=== PATIENT | female | born 1945 | race Caucasian/White ===

== ENCOUNTER 2018-07-04 07:54 | Outpatient (CLI) | payer MEDICARE, OTHER | END 2018-07-04 07:55 | disposition home or self-care (01) | LOC: BICMAMMO 07:54 | PROVIDERS: ATTEND Obstetrics & Gynecology | DX: Z12.31 Encounter for screening mammogram for malignant neoplasm of breast (principal); R92.1 Mammographic calcification found on diagnostic imaging of breast | CPT/HCPCS: 77063; 77067 ==

== ENCOUNTER 2019-03-11 10:44 | Outpatient (CLI) | payer MEDICARE, OTHER ==
--- NOTE | 2019-03-11 11:28 | ULT ---
EXAM: Right lower extremity venous duplex: Deep veins evaluated with color Doppler, spectral analysis, and compression. INDICATIONS: Right lower extremity pain and edema. FINDINGS: Deep veins interrogated include common femoral vein, femoral vein, popliteal vein, and post erior tibial vein. These veins show normal compression and blood flow. No evidence of DVT. Andrade's cyst in the popliteal fossa measures 7 x 5 x 2 cm. IMPRESSION: Negative Right venous duplex exam. Andrade's cyst.
== END 2019-03-11 10:45 | disposition home or self-care (01) ==
LOC: ULT 10:44
PROVIDERS: ATTEND Family Medicine
DX: R60.0 Localized edema (principal); M71.21 Synovial cyst of popliteal space [Baker], right knee